=== PATIENT | male | born 1990 | race American Indian/Alaskan Native ===

== ENCOUNTER 2016-12-23 18:03 | Emergency (ER) | payer OTHER ==
[2016-12-23 18:13] VITALS: BP 121/82; PULSE 66; RESP 20; TEMP 98.3; O2SAT 96
[2016-12-23] MEDS ORDERED: TDAP Vaccine 0.5 mL Syr IM ONE (18:17)
[2016-12-23] MEDS ORDERED: Lidocaine 1% Inj (20ml) IJ ONE (18:17)
[2016-12-23] MEDS ORDERED: Lidocaine 1% Inj (20ml) ONE (18:17)
--- NOTE | 2016-12-23 18:23 | ED PDOC ---
Upper Extremity Pain/Injury Time Seen by Provider: 12/23/16 18:14 Chief Complaint (Nursing): Upper Extremity Problem/Injury Chief Complaint (Provider): Laceration to left index finger History Per: Patient History/Exam Limitations: no limitations Onset/Duration Of Symptoms: Hrs Current Symptoms Are (Timing): Still Present Additional Complaint(s): Dov Gill, a 26 year old male presents to the ED with a laceration to his left index finger. The patient reports that he cut his finger with a sharp edge of a metal machine. Past Medical History Reviewed: Historical Data, Nursing Documentation, Vital Signs Vital Signs: Last Vital Signs Temp 98.3 F 12/23/16 18:11 Pulse 66 12/23/16 18:11 Resp 20 12/23/16 18:11 BP 121/82 12/23/16 18:11 Pulse Ox 96 12/23/16 18:11 - Medical History PMH: No Chronic Diseases - Surgical History Surgical History: No Surg Hx - Family History Family History: States: No Known Family Hx - Immunization History Hx Tetanus Toxoid Vaccination: No Hx Influenza Vaccination: No Hx Pneumococcal Vaccination: No - Home Medications Home Medications: Ambulatory Orders Medication Instructions Recorded Polyethylene Glycol 3350 [Miralax] 17 gm PO DAILY #270 ml 05/15/16 - Allergies Allergies/Adverse Reactions: Allergies Allergy/AdvReac Type Severity Reaction Status Date / Time No Known Allergies Allergy Verified 05/14/16 23:38 Review of Systems ROS Statement: Except As Marked, All Systems Reviewed And Found Negative Musculoskeletal: Positive for: Other (laceration to left index finger.) Physical Exam - Reviewed Nursing Documentation Reviewed: Yes Vital Signs Reviewed: Yes - Physical Exam Appears: Positive for: Well, Non-toxic, No Acute Distress Head Exam: Positive for: ATRAUMATIC, NORMOCEPHALIC Skin: Negative for: Rash Extremity: Positive for: Normal ROM (Full ROM actively of left second digit.), Other (3cm linear laceration on th eleft proximal phalynx of the left second digit; No bone or tendon exposure; No active bleeding) Neurologic/Psych: Positive for: Alert, Oriented - ECG O2 Sat by Pulse Oximetry: 96 (RA) Pulse Ox Interpretation: Normal Medical Decision Making Medical Decision Makin:14 Initial Impression: 26 year old male presenting with a linear laceration on the left second digit. Initial Plan: * Boostrix 0.5ml IM * Lidocaine 1% 3mL IJ Scribe Attestation Documented by Clementina Navarrete acting as a scribe for Emir Smith PA-C. Provider Attestation: All medical record entries made by the Scribe were at my direction and personally dictated by me. I have reviewed the chart and agree that the record accurately reflects my personal performance of the history, physical exam, medical decision making, and the department course for this patient. I have also personally directed, reviewed, and agree with the discharge instructions and disposition. Procedures - Time-Out Type of Procedure: laceration repair Site of Procedure: L 2nd digit Correct Patient: Yes Correct Procedure: Yes Correct Site Marked: Yes PA/Tech: Sarah - Laceration/Wound Repair Laceration repair Wound Length (cm): 3 Wound's Depth, Shape: superficial, linear Wound Explored: clean Irrigated w/ Saline (ccs): 300 Betadine Prep?: Yes Anesthesia: 1% Lidocaine Volume Anesthetic (ccs): 3 Wound Repaired With: Sutures Suture Size/Type: 5:0, proline Number of Sutures: 6 Layer Closure?: No Wound Complexity: Simple Sterile Dressing Applied?: Yes Disposition - Clinical Impression Clinical Impression: Finger laceration - Patient ED Disposition Is Patient to be Admitted: No - Disposition Referrals: [facility] [Outside] Disposition: Routine/Home Disposition Time: 19:24 Condition: STABLE Additional Instructions: Suture removal in 7 days. Instructions: Care For Your Stitches (ED) Print Language: CHINESE
== END 2016-12-23 19:30 | disposition home or self-care (01) ==
LOC: H.ER 18:03
DX: S61.201A Unspecified open wound of left index finger without damage to nail, initial encounter (principal); W22.8XXA Striking against or struck by other objects, initial encounter; Y92.89 Other specified places as the place of occurrence of the external cause

== ENCOUNTER 2016-12-30 17:04 | Emergency (ER) | payer OTHER ==
[2016-12-30 17:23] VITALS: BP 134/84; PULSE 80; RESP 16; TEMP 98; O2SAT 100
--- NOTE | 2016-12-30 17:49 | ED PDOC ---
HPI: Wound Care - HPI Time Seen by Provider: 12/30/16 17:47 Chief Complaint (Nursing): Suture/Staple Removal Chief Complaint (Provider): SUTURE REMOVAL History Per: Patient (26 Y/O MALE HERE FOR SUTURE REMOVAL. PATIENT HAS HAD SUTURED LACERATION 12/23/2016. DENIES ANY COMPLAINTS.) Past Medical History Reviewed: Historical Data, Nursing Documentation, Vital Signs Vital Signs: Last Vital Signs Temp 98.0 F 12/30/16 17:20 Pulse 80 12/30/16 17:20 Resp 16 12/30/16 17:20 BP 134/84 12/30/16 17:20 Pulse Ox 100 12/30/16 17:20 - Family History Family History: States: Unknown Family Hx - Immunization History Hx Tetanus Toxoid Vaccination: No Hx Influenza Vaccination: No Hx Pneumococcal Vaccination: No - Home Medications Home Medications: Ambulatory Orders Medication Instructions Recorded Polyethylene Glycol 3350 [Miralax] 17 gm PO DAILY #270 ml 05/15/16 - Allergies Allergies/Adverse Reactions: Allergies Allergy/AdvReac Type Severity Reaction Status Date / Time No Known Allergies Allergy Verified 12/30/16 17:20 Review of Systems ROS Statement: Except As Marked, All Systems Reviewed And Found Negative Physical Exam - Reviewed Nursing Documentation Reviewed: Yes Vital Signs Reviewed: Yes - Physical Exam Appears: Positive for: Well, Non-toxic, No Acute Distress Head Exam: Positive for: ATRAUMATIC, NORMAL INSPECTION, NORMOCEPHALIC Skin: Positive for: Normal Color, Warm, DRY Eye Exam: Positive for: EOMI, Normal appearance, PERRL ENT: Positive for: Normal ENT Inspection Neck: Positive for: Normal, Painless ROM Cardiovascular/Chest: Positive for: Regular Rate, Rhythm Respiratory: Positive for: CNT, Normal Breath Sounds Gastrointestinal/Abdominal: Positive for: Normal Exam, Bowel Sounds, Soft Back: Positive for: Normal Inspection Extremity: Positive for: Normal ROM, Other (SUTURED WOUND DORSAL SURFACE SECOND DIGIT WELL HEALING WOUND.) Neurologic/Psych: Positive for: Alert, Oriented - ECG O2 Sat by Pulse Oximetry: 100 - Progress ED Course And Treament: SUTURES REMOVED WITHOUT DIFFICULTY STERI-STRIPS PLACED ON WOUND Disposition - Clinical Impression Clinical Impression: Removal of suture - Patient ED Disposition Is Patient to be Admitted: No - Disposition Disposition: Routine/Home Disposition Time: 17:49 Condition: FAIR Instructions: Stitches Removal (ED)
== END 2016-12-30 18:00 | disposition home or self-care (01) ==
LOC: H.ER 17:04
DX: Z48.02 Encounter for removal of sutures (principal)